=== PATIENT | male | born 1980 | race African-American/Black ===

== ENCOUNTER 2016-06-26 06:23 | Emergency (ER) | payer BC ==
[~2016-06-26] VITALS: Ht 172.7 cm; Wt 72.0 kg
[2016-06-26 09:14] LABS: BASOPHILS % 0.5 % (0.0-2.0); EOSINOPHILS % 0.6 % (0.0-5.0); HEMATOCRIT. 43.1 % (42.0-52.0); HEMOGLOBIN. 14.6 g/dL (14.0-18.0); LYMPHOCYTES % 33.3 % (20.0-50.0); MEAN CORPUSCULAR HEMOGLOBIN 28.1 pg (28.0-32.0); MEAN CORPUSCULAR HGB CONC 33.7 g/dL (31.0-37.0); MEAN CORPUSCULAR VOLUME 83.4 fL (80.0-94.0); MEAN PLATELET VOLUME 6.9 fl (7.4-10.4); MONOCYTES % 6.9 % (2.0-8.0); NEUTROPHILS % 58.7 % (40.0-76.0); PLATELET 288 x1000/uL (130-400); RED BLOOD CELL COUNT 5.18 mill/uL (4.7-6.1); WHITE BLOOD COUNT 6.9 x1000/uL (4.5-11.0)
[2016-06-26 09:16] LABS: CHLORIDE 107 mEq/L (98-107); INDEX HEMOLYSI 1 (1-3); INDEX ICTERIC 1 (1-4); INDEX LIPEMIC 1 (1-3)
[2016-06-26 09:18] LABS: INR 1.1; PROTHROMBIN TIME 11.1 sec
[2016-06-26 09:24] LABS: ALBUMIN 4.1 g/dL (3.4-5.0); ANION GAP 7; CALCIUM 8.9 mg/dL (8.5-10.1); CARBON DIOXIDE 32 mEq/L (21-32); UREA NITROGEN BLOOD 9 mg/dL (7-21); eGFR > 60 mL/min (>60)
[2016-06-26 09:25] LABS: ALANINE AMINOTRANSFERASE 22 IU/L (13-61); LIPASE 174 IU/L (73-393)
[2016-06-26 09:35] LABS: GLUCOSE URINE NEGATIVE (NEGATIVE); KETONES URINE NEGATIVE (NEGATIVE); LEUKOCYTE ESTERASE URINE NEGATIVE (NEGATIVE); NITRITE URINE NEGATIVE (NEGATIVE); OCCULT BLOOD URINE NEGATIVE (NEGATIVE); PROTEIN URINE NEGATIVE (NEGATIVE); SPECIFIC GRAVITY URINE 1.018 (1.005-1.030); UROBILINOGEN URINE 0.2 E.U./dL (0.2-1.0)
[2016-06-26 09:47] LABS: *AMPHETAMINES SCREEN URINE NEGATIVE (NEGATIVE); *BARBITURATES SCREEN URINE NEGATIVE (NEGATIVE); *BENZODIAZEPINES SCREEN URINE NEGATIVE (NEGATIVE); *COCAINE SCREEN URINE NEGATIVE (NEGATIVE); CANNABINOID URINE SCREEN PRESUMTIVE POSITIVE (NEGATIVE); ECSTASY MDMA SCREEN URINE NEGATIVE (NEGATIVE); METHADONE URINE SCREEN NEGATIVE (NEGATIVE); OPIATES URINE SCREEN NEGATIVE (NEGATIVE); PHENCYCLIDINE URINE SCREEN NEGATIVE (NEGATIVE)
[2016-06-26 09:50] LABS: COLOR URINE YELLOW (YELLOW)
[2016-06-26 09:51] LABS: CLARITY URINE CLEAR (CLEAR)
[2016-06-26 11:25] VITALS: BP 119/72
== END 2016-06-26 11:26 | disposition home or self-care (01) ==
LOC: ER 07:41
DX: R11.2 Nausea with vomiting, unspecified (principal); F12.10 Cannabis abuse, uncomplicated; K92.0 Hematemesis; Z98.890 Other specified postprocedural states
CPT/HCPCS: 36415; 80053; 80305; 81003; 83690; 85025; 85610; 99284; Z7610